=== PATIENT | female | born 1995 | race Caucasian/White ===

== ENCOUNTER 2018-02-21 07:10 | Day surgery (SDC) | payer OTHER ==
[~2018-02-21] VITALS: Ht 172.7 cm; Wt 65.8 kg
[~2018-02-21 07:10] MED LIST: PRENA1 TRUE CO1 EACH PO
--- NOTE | 2018-02-21 10:10 | NUR ---
02/21/18 1010 Mariola Masters 1006 PATIENT AWAKE, BUT DROWSY. RESP EVEN AND UNLABORED, MASK AT 6 LITERS. DENIES PAIN OR NAUSEA. WARM BLANKETS GIVEN FOR COMFORT. 1010 PATIENT RESTING QUIETLY WITH EYES CLOSED. OFF OXYGEN. ICE TO LEFT ARM.
--- NOTE | 2018-02-21 10:50 | NUR ---
PATIENT BACK IN DAY SURGERY ROOM FROM PACU. DENIES PAIN. DENIES NAUSEA. ICE WATER PLACED AT BEDSIDE. LEFT SHOULDER DRESSINGS X 2 CLEAN, DRY AND INTACT. C/O NUMBNESS/TINGLING IN LEFT FINGERS. ABLE TO MOVE LEFT FINGERS SLIGHTLY. CAP REFILL IN LEFT FINGERS WNL. LEFT ARM ELEVATED ON PILLOW. ICE PACK TO LEFT SHOULDER. SCDs ON. AT BEDSIDE. CALL LIGHT WITHIN REACH.
[2018-02-21] MEDS ORDERED: NORCO 7.5-3251 EACH PO (11:07)
[2018-02-21] MEDS ORDERED: ULTRAM50 MG PO (11:08)
--- NOTE | 2018-02-21 11:39 | NUR ---
PATIENT RESTING. AWAKENED FOR VS. TOLERATED WATER AND SOME BUBBA CRACKER. IV SITE WNL. LEFT SHOULDER DRESSINGS X 2, CDI. DENIES PAIN AND NAUSEA. AT BEDSIDE. CALL LIGHT WITHIN REACH.
--- NOTE | 2018-02-26 07:27 | OR ---
[facility] [address], [place] [address] Signed DATE OF OPERATION: 02/21/2018 SURGEON: Laura Mann MD PREOPERATIVE DIAGNOSIS: Chondral flap tear of glenoid, left shoulder. POSTOPERATIVE DIAGNOSIS: Chondral flap tear of glenoid, left shoulder with area of completely denuded humeral head measuring approximately 6 x 8 mm. PROCEDURE: Shoulder arthroscopy with debridement of chondral flap. ANESTHESIA: General. SPECIMENS AND COMPLICATIONS: There were no specimens or complications. TOURNIQUET: Not used. BLOOD LOSS: Minimal. WHAT WAS DONE: The patient was taken to the operating room. After anesthesia was induced and airway secured, the patient was placed in the modified beach chair position and prepped and draped in the routine sterile fashion. The bony topography was outlined with a skin marking pen and using her old scar as a guide, the arthroscope was inserted through the standard posterior portal. An anterior portal was created using a switching stick technique. Diagnostic arthroscopy of the shoulder revealed the flap tear over the anterior inferior aspect of the glenoid. The rest of the labrum appeared unremarkable. The humeral head had a surprising area that was completely denuded of articular cartilage 6 x 8 mm. The biceps tendon, the biceps insertion, and the superior, anterior, and posterior portions of the labrum were unremarkable as was the glenoid surface itself. The undersurface of the supraspinatus and the subscapularis were similarly unremarkable except for some mild fraying. Electronically Signed By: LAURA MANN MD 02/26/18 0727 PATIENT NAME: JEREMIAS DOWNING OPERATIVE REPORT DATE OF : [birth year] REPORT #: [id number] PHYSICIAN: LAURA MANN MD PCP: NO PRIMARY CARE PHYSICIAN REPORT IS CONFIDENTIAL AND NOT TO BE RELEASED WITHOUT AUTHORIZATION [facility] [address], [place] [address] Signed The VAPR electrosurgical device was introduced through the anterior portal and the chondral flap was debrided removing only the unstable fragments. The shoulder was then irrigated and drained. The portals were closed and sterile dressings applied. She was placed in a sling, awakened, and taken to the recovery room where she arrived in stable condition. Counts were correct and antibiotic protocols were followed. Laura Mann MD WFB/MODL /[id number] Copies: ~ Electronically Signed By: LAURA MANN MD 02/26/18 0727 PATIENT NAME: JEREMIAS DOWNING SANDRA OPERATIVE REPORT DATE OF : [birth year] REPORT #: [id number] PHYSICIAN: LAURA MANN MD PCP: NO PRIMARY CARE PHYSICIAN REPORT IS CONFIDENTIAL AND NOT TO BE RELEASED WITHOUT AUTHORIZATION
== END 2018-02-21 13:21 | disposition home or self-care (01) ==
LOC: DS 07:10
PROVIDERS: Orthopaedic Surgery
PROC: 0RBK4ZZ Excision of Left Shoulder Joint, Percutaneous Endoscopic Approach (ICD-10-PCS; principal; 2018-02-21 08:00)
DX: S43.492A Other sprain of left shoulder joint, initial encounter (principal); M54.9 Dorsalgia, unspecified
CPT/HCPCS: 01630; 64415; 76942; J0690; J1100; J1885; J2250; J2405; J2704; J2765; J2795; J3010; J7120